=== PATIENT | female | born 1965 | race Caucasian/White ===

== ENCOUNTER 2025-07-24 14:28 | Outpatient (AMB) | payer BC, SELFPAY ==
--- OUTSIDE RECORDS SUMMARY | 2025-07-24 15:28 | XMS_ITS | Patient Health Record ---
Author Organization [facility] Address [address] [place] [address] Care Team Providers Care Development Director Name Role Phone Shanice Schuler Primary Care Provider Sam Escobar Unavailable [phone] Allergies No Known Allergies Reason For Referral No Information Medications Medication SIG (Take, Route, Frequency, Duration) Notes Start Date End Date Status Verapamil HCl ER 180 MG 1 tablet Orally Once a day; Duration: 30 day(s) Active Liothyronine Sodium 5 MCG 1 tablet on an empty stomach Orally Twice daily Active Work Note . . . patient had foot surgery and is disabled from work until return on 03/05/22 Active Work Note . . . patient has been disabled from work due to foot surgery on 06/19/20 and may return to work on 06/24/20 Not-Taking Keflex 500 MG 1 capsule Orally every 12 hrs; Duration: 10 days 06/09/2020 Not-Taking hydroCHLOROthiazide 25 MG 1 tablet in morning Orally Once a day Active ARIPiprazole 2 MG 1/2 tablet Orally Once a day Active Levothyroxine Sodium 75 MCG 1 tablet in the morning on an empty stomach Orally Once a day; Duration: 30 day(s) Active Ibuprofen 800 MG 1 tablet with food or milk as needed Orally Three times a day; Duration: 30 days 06/09/2020 Active Immunizations Vaccine Route Administration Date Status Comme nts COVID-19 Moderna Vaccine Unknown 11/03/2021 Administered 1st 02/19/21 2nd 03/19/21 Social History Tobacco Use: Social History Observation Description Date Details (start date - stop date) Former Smoker NA - NA Tobacco Use/Smoking Question Answer Notes Are you a: former smoker Additional Findings: Tobacco Non-User Current no n-smoker Alcohol Screen Question Answer Notes Did you have a drink contain ing alcohol in the past year? Yes How often did you have a dri nk containing alcohol in the past year? 2 to 4 times a month (2 points) Points 2 Interpretation Negative Tobacco use other than smoking: Question Answer Notes Are you an other tobacco user? No Plan Of Treatment Pending Test Test Name Order Date X ray : Foot, right 3V 06/09/2020 Insurance Providers Payer Name Payer Address Payer Phone Subscriber Number Group Number Insured Name Patient Relationship to Insured Coverage Start Date Coverage End Date [facility] ([facility] [address] [place] [address] [id number] Komal Lamar Self - patient is the insured Medical (General) History Medical History History ICD Code Arthritis High blood pressure Keloid/Thick Scar raynauds disease Chicken pox Surgical History Surgery Date(Month/Year) Inclusion Cyst & Excision of Skin Right Foot 06/19/2020 Hospitalization History Reason Date(Month/Year) Excision of Cyst & Skin Right Foot 06/19
== END 2025-07-24 14:44 | disposition home or self-care (01) ==
PROVIDERS: PCP Internal Medicine; Visit Provider Registered Nurse Emergency
DX: J30.89 Other allergic rhinitis (principal)
CPT/HCPCS: 95117; 95165

== ENCOUNTER 2025-09-23 11:34 | Outpatient (AMB) | payer OTHER, SELFPAY ==
--- OUTSIDE RECORDS SUMMARY | 2025-09-23 14:55 | XMS_ITS | Patient Health Record ---
Author Organization [facility] Address [address] [place] [address] Care Team Providers Care Pecan Mallow Dipper Name Role Phone Shanice Schuler Primary Care Provider Chiquita Parkinson Unavailable [phone] Allergies No Known Allergies Reason For Referral [...] Not-Taking hydroCHLOROthiazide 25 MG 1 tablet in e morning Orally Once a day Active ARIPiprazole [...] X ray : Foot, right 3V 06/09/2020 Next Appt Details Provider Name:Chiquita dolan, 10/11/2025 12:00:00 PM, [address] [place] [address], [phone], Insurance Providers Payer Name Payer Address Payer Phone Subscriber Number Group Number Insured Name Patient Relationship to Insured Coverage Start Date Coverage End Date [facility] [address] [facility] [place] [id number] Komal Lamar Self - patient is the insured Medical (General) History Medical History History ICD Code Arthritis High blood pressure Keloid/Thick Scar raynauds disease Chicken pox Surgical History Surgery Date(Month/Year) Inclusion Cyst & Excision of Skin Right Foot 06/19/2020 Hospitalization History Reason Date(Month/Year) Excision of Cyst & Skin Right Foot 06/19
== END 2025-09-23 11:34 | disposition home or self-care (01) ==
LOC: HO.HMGAL 11:34
PROVIDERS: PCP Nurse Practitioner Family; Visit Provider Registered Nurse Emergency
DX: J30.89 Other allergic rhinitis (principal)
CPT/HCPCS: 95117; 95165